=== PATIENT | female | born 1945 | race Two or more races ===

== ENCOUNTER 2022-08-16 15:43 | Inpatient (IN) | payer MEDICARE, BC ==
[~2022-08-16] VITALS: Ht 165.1 cm; Wt 53.5 kg
--- NOTE | 2022-08-16 17:45 | NUR ---
MS HOT DOG VENDER NOTES RECEIVED PATIENT DIRECT ADMIT FROM [facility] VIA LI ENDORSED BY THEA BASSETT. PATIENT IS AWAKE AND A/O X3. ON O2 AT 3LPM VIA NASAL CANNULA TOLERATING WELL. NO SOB NOTED. NOT IN DISTRESS. WITH COMPLAINTS OF PAIN AT THE RIGHT HIP AT THE SCALE OF 5/10. COMFORT MEASURE PROVIDED. WITH SKIN ISSUES AND PHOTOS TAKEN PLACED ON CHART. WITH IV ACCESS AT THE LEFT AC G20 SALINE LOCKED, PATENT AND INTACT. SAFETY MEASURES IN PLACED. CALL LIGHT WITHIN REACH. BED ON LOWEST LOCKED POSITION, SIDE RAILS UP X2. WILL ENDORSE TO NEXT SHIFT FOR JUAN MANUEL.
[2022-08-16] MEDS ORDERED: MAG HYDROX/AL HYDROX/SIMETH 30 ML UDC PO PRN (18:00)
[2022-08-16] MEDS ORDERED: ONDANSETRON HCL/PF 4 MG/2 ML VIAL IVP PRN (18:00)
[2022-08-16] MEDS ORDERED: MAGNESIUM HYDROXIDE 30 ML UDC PO PRN (18:00)
[2022-08-16] MEDS ORDERED: ACETAMINOPHEN 325 MG TABLET PO PRN (18:00)
[2022-08-16] MEDS ORDERED: HYDROCODONE/APAP 10/325MG TABLET PO PRN (18:00)
[2022-08-16 18:10] VITALS: BP 127/83
[2022-08-16 18:39] VITALS: BP 110/68
--- NOTE | 2022-08-16 19:45 | NUR ---
MS RN OPENING NOTE RECEIVED PATIENT IN BED; AWAKE, ALERT AND ORIENTED X 1. ON O2 INHALATION @ 3 LPM VIA NASAL CANNULA; SATURATING @ 97%. BREATHING EVEN AND UNLABORED. NO C/O PAIN OR DISCOMFORT AT THIS TIME. WITH IV ACCESS ON LEFT AC 20g; PATENT AND INTACT INFUSING WITH NS 1L REGULATED @ 90 ML/HR; FLUSHES WELL. SAFETY PRECAUTIONS IMPLEMENTED: HOB ELEVATED, CALL LIGHT AND TABLE WITHIN REACH, SIDE RAILS UP X 3, BED IN LOWEST LOCKED POSITION. WILL CONTINUE PLAN OF CARE.
[2022-08-16 20:00] VITALS: BP_SYST 113; BP_SYST 154; BP_DIAS 54; BP_DIAS 78
[2022-08-16] MEDS: IV NS 0.9% 1,000 ML IV PRN (20:03)
--- NOTE | 2022-08-17 06:50 | NUR ---
MS RN CLOSING NOTE PATIENT IN BED; AWAKE, A/O X 1. STILL ON O2 INHALATION @ 3 LPM VIA NASAL CANNULA; SATURATING @ 96%. BREATHING EQUAL AND NONLABORED. NO C/O PAIN OR DISCOMFORT AT THIS TIME. WITH IV ACCESS ON RIGHT FA 22g; PATENT AND INTACT INFUSING WITH NS 1L REGULATED @ 90 ML/HR; FLUSHES WELL. SAFETY PRECAUTIONS MAINTAINED: CALL LIGHT AND TABLE WITHIN REACH, SIDE RAILS UP X 3, BED IN LOWEST LOCKED POSITION. ENDORSED TO MORNING SHIFT FOR JUAN MANUEL.
[2022-08-17 07:00] VITALS: BP 157/72
[2022-08-17 07:08] LABS: BASOPHILS % (AUTO) 0.5 % (0.0-2.0); EOSINOPHILS % (AUTO) 1.7 % (0.0-6.0); HEMATOCRIT 42 % (33-45); HEMOGLOBIN 13.7 g/dL (11.5-14.8); LYMPHOCYTES # (AUTO) 0.8 K/uL (0.8-4.8); LYMPHOCYTES % (AUTO) 10.1 % (20.0-44.0); MEAN CORPUSCULAR HGB CONC 33 g/dl (31.0-36.0); MEAN CORPUSCULAR VOLUME 92 fL (82-100); MONOCYTES # (AUTO) 0.4 K/uL (0.1-1.30); MONOCYTES % (AUTO) 5.3 % (2.0-12.0); NEUTROPHILS # (AUTO) 6.8 K/uL (1.8-8.9); NEUTROPHILS % (AUTO) 82.4 % (43.0-81.0); PLATELET COUNT (AUTO) 176 K/uL (150-450); RED BLOOD CELL COUNT(AUTO) 4.53 MIL/uL (4.0-5.2); WHITE BLOOD COUNT (AUTO) 8.2 K/uL (4.3-11.0)
[2022-08-17 07:18] LABS: CALCIUM, SERUM 8.3 mg/dL (8.5-10.1); CREATININE 1.1 mg/dL (0.6-1.3); MAGNESIUM 2.2 mg/dL (1.8-2.4); POTASSIUM 3.4 mmol/L (3.5-5.1)
--- NOTE | 2022-08-17 07:30 | NUR ---
MS RN OPENING NOTES RECEIVED PATIENT ON BED AWAKE AND A/O X2-3. ON O2 AT 3LPM VIA NASAL CANNULA TOLERATING WELL. NO SOB NOTED. NOT IN DISTRESS. WITH COMPLAINTS OF PAIN AT THE RIGHT HIP AND RIGHT KNEE AT THE SCALE OF 5/10. COMFORT MEASURES PROVIDED. PATIENT DOESN'T WANT TO TAKE ANY PAIN MEDICATION. WITH IV ACCESS AT THE RIGHT FOREARM G22 WITH IVF NS AT 90ML/HR INFUSING WELL. SAFETY MEASURES IN PLACED. CALL LIGHT WITHIN REACH. BED ON LOWEST LOCKED POSITION, SIDE RAILS UP X2. WILL CONTINUE TO MONITOR.
[2022-08-17] MEDS ORDERED: FAMO20TA8 PO (08:05)
[2022-08-17] MEDS ORDERED: ALBU18HF2 IH (08:05)
[2022-08-17] MEDS ORDERED: LEVO100T9 PO (08:05)
[2022-08-17] MEDS ORDERED: ASPI-1169 PO (08:05)
[2022-08-17] MEDS ORDERED: SIMV-46 PO (08:05)
[2022-08-17] MEDS ORDERED: POLY250017 PO (08:05)
[2022-08-17] MEDS ORDERED: FLUD0.1T PO (08:05)
[2022-08-17] MEDS ORDERED: EZET10TA16 PO (08:05)
[2022-08-17] MEDS ORDERED: FLUT1DIS3 INH (08:05)
[2022-08-17] MEDS ORDERED: TIOT18CA3 INH (08:05)
[2022-08-17] MEDS ORDERED: POTASSIUM CHLORIDE 20 MEQ TAB.PRT.SR PO ONE (09:00)
[2022-08-17] MEDS ORDERED: ALBUTEROL FS 2.5 MG/0.5 ML VIAL.NEB NEB PRN (10:30)
[2022-08-17] MEDS: LEVOTHYROXINE SODIUM 100 MCG TABLET PO SCH (11:37)
[2022-08-17] MEDS: FLUTICASONE/VILANTEROL 1 EACH BLST.W.DEV IH SCH (11:37)
[2022-08-17 16:00] VITALS: BP 162/70
[2022-08-17] MEDS ORDERED: K PHOS NEUTRAL 250 MG TABLET PO ONE (16:00)
[2022-08-17] MEDS: SIMVASTATIN 20 MG TABLET PO SCH (17:39)
[2022-08-17] MEDS: IV NS 0.9% 1,000 ML IV PRN (17:47)
--- NOTE | 2022-08-17 18:37 | NUR ---
MS RN CLOSING NOTES PATIENT ON BED AWAKE AND A/O X2-3. ON O2 AT 2LPM VIA NASAL CANNULA TOLERATING WELL. NO SOB NOTED. NOT IN DISTRESS. WITH COMPLAINTS OF PAIN AT THE RIGHT HIP AND RIGHT KNEE AT THE SCALE OF 5/10. COMFORT MEASURES PROVIDED. PATIENT DOESN'T WANT TO TAKE ANY PAIN MEDICATION. WITH IV ACCESS AT THE RIGHT FOREARM G22 WITH IVF NS AT 90ML/HR INFUSING WELL. DUE MEDS GIVEN. SAFETY MEASURES IN PLACED. CALL LIGHT WITHIN REACH. BED ON LOWEST LOCKED POSITION, SIDE RAILS UP X2. WILL ENDORSE TO NEXT SHIFT FOR JUAN MANUEL.
--- NOTE | 2022-08-17 19:48 | NUR ---
MS RN OPENING NOTE PATIENT AWAKE IN BED, ALERT/ORIENTED X 1-2 WITH CONFUSION. PATIENT STABLE ON 2 L OF O2 VIA NASAL CANNULA, NO S/S OF DISTRESS OR SOB NOTED, BREATHING EVEN AND UNLABORED. IV ACCESS ON RFA #22G INTACT AND INFUSING NS @ 90 ML/HR. PUREWICK IN PLACE AND DRAINING LATA URINE. PATIENT TO BE NPO AT MIDNIGHT FOR RIGHT HIP SURGERY TOMORROW. SAFETY MEASURES IN PLACE: CALL LIGHT WITHIN REACH, SIDE RAILS UP X 3, BED LOCKED IN LOWEST POSITION, HOB ELEVATED, BED ALARM ON. WILL CONTINUE TO MONITOR PATIENT
[2022-08-17 20:00] VITALS: BP 156/69
[2022-08-17] MEDS: IPRATROPIUM NEB FS 0.5 MG/2.5 ML AMPUL.NEB NEB SCH (20:44)
--- NOTE | 2022-08-17 20:50 | NUR ---
MS RN NOTE PATIENT C/O 7/10 RIGHT HIP PAIN. NORCO 10-325 MG GIVEN ORDERED. WILL CONTINUE TO MONITOR PATIENT
[2022-08-18] VITALS (8 sets, daily range): BP systolic 104–155; BP diastolic 57–77
[2022-08-18] MEDS: IPRATROPIUM NEB FS 0.5 MG/2.5 ML AMPUL.NEB NEB SCH ×4 (00:48→20:25)
--- NOTE | 2022-08-18 04:54 | NUR ---
MS RN NOTE PATIENT C/O OF 8/10 RIGHT HIP PAIN. PATIENT ONLY HAS ORDER FOR NORCO, HOWEVER PATIENT IS NOW NPO FOR SURGERY THIS AM. CONTACTED NON FOOD RECEIVING CLERK MD JOSIANE JUDD WITH ORDER FOR PRN MORPHINE 1 MG IV Q6H. ORDER VERIFIED AND CARRIED OUT
[2022-08-18] MEDS: MORPHINE SULFATE INJ 2 MG/ML DISP.SYRIN IV PRN ×2 (05:00→17:54)
[2022-08-18] MEDS: IV NS 0.9% 1,000 ML IV PRN (05:00)
[2022-08-18 05:45] LABS: BASOPHILS % (AUTO) 0.4 % (0.0-2.0); EOSINOPHILS % (AUTO) 2.2 % (0.0-6.0); HEMATOCRIT 36 % (33-45); HEMOGLOBIN 11.9 g/dL (11.5-14.8); LYMPHOCYTES # (AUTO) 0.8 K/uL (0.8-4.8); LYMPHOCYTES % (AUTO) 12.8 % (20.0-44.0); MEAN CORPUSCULAR HGB CONC 33 g/dl (31.0-36.0); MEAN CORPUSCULAR VOLUME 92 fL (82-100); MONOCYTES # (AUTO) 0.5 K/uL (0.1-1.30); MONOCYTES % (AUTO) 7.2 % (2.0-12.0); NEUTROPHILS # (AUTO) 4.9 K/uL (1.8-8.9); NEUTROPHILS % (AUTO) 77.4 % (43.0-81.0); PLATELET COUNT (AUTO) 132 K/uL (150-450); RED BLOOD CELL COUNT(AUTO) 3.91 MIL/uL (4.0-5.2); WHITE BLOOD COUNT (AUTO) 6.3 K/uL (4.3-11.0)
[2022-08-18 06:00] LABS: CALCIUM, SERUM 7.7 mg/dL (8.5-10.1); CREATININE 0.9 mg/dL (0.6-1.3); PHOSPHORUS 2.6 mg/dL (2.5-4.9); POTASSIUM 3.3 mmol/L (3.5-5.1)
[2022-08-18] MEDS ORDERED: POLYMYXIN B SULFATE 500,000 UNITS ONE (06:14)
[2022-08-18] MEDS ORDERED: BUPIVACAINE 0.25% 75 MG/30 ML VIAL ONE (06:15)
--- NOTE | 2022-08-18 06:22 | NUR ---
MS RN CLOSING NOTE PATIENT SLEEPING IN BED, EASILY AWAKENED, PT ALERT/ORIENTED X 1-2 WITH PERIODS OF CONFUSION. PATIENT STABLE ON 2 L OF O2 VIA NASAL CANNULA, NO S/S OF DISTRESS OR SOB NOTED, BREATHING EVEN AND UNLABORED. IV ACCESS ON RFA #22G INTACT AND INFUSING NS @ 90 ML/HR. NO SIGNIFICANT CHANGES THIS SHIFT, MEDICATIONS GIVEN ORDERED, PT NEEDS MET THROUGHOUT SHIFT, PATIENT SLEPT WELL THROUGH THE NIGHT, PAIN CONTROL PROVIDED. PUREWICK IN PLACE AND DRAINING LATA URINE. SAFETY MEASURES IN PLACE: CALL LIGHT WITHIN REACH, SIDE RAILS UP X 3, BED LOCKED IN LOWEST POSITION, HOB ELEVATED, BED ALARM ON. WILL ENDORSE TO DAYSHIFT RN FOR CONTINUITY OF CARE
--- NOTE | 2022-08-18 06:48 | NUR ---
MS RN NOTE PATIENT TAKEN DOWN TO OR BY OR NURSE, PT IN STABLE CONDITION. WILL ENDORSE TO DAYSHIFT RN
[2022-08-18] MEDS ORDERED: FENTANYL PF 100MCG/2ML AMPUL ONE (06:52)
[2022-08-18] MEDS ORDERED: HYDROMORPHONE INJ 2 MG/ML DISP.SYRIN ONE (06:52)
[2022-08-18] MEDS ORDERED: MIDAZOLAM HCL 2 MG/2ML VIAL ONE (06:53)
[2022-08-18] MEDS ORDERED: TRANEXAMIC ACID 1,000 MG in IV NS 0.9% 100 ML IV ONE (07:00)
[2022-08-18] MEDS: LEVOTHYROXINE SODIUM 100 MCG TABLET PO SCH (07:30)
--- NOTE | 2022-08-18 07:56 | NUR ---
RN OPENING NOTE RECEIVED PATIENT IN BED AO X 1-2 CONFUSED, ABLE TO RESPONDS PHYSICAL STIMULI. RESPIRATORY EVEN AND UNLABORED IN OXYGEN AT 2 Ls VIA NC. PATIENT LEFT PROCEDURE FOR RIGHT ORTHOPLASTY AT 0640 REPORTED BY ASSOCIATE STORE DIRECTOR.
[2022-08-18] MEDS: FAMOTIDINE (20 MG) 20 MG TABLET PO SCH (09:00)
[2022-08-18] MEDS: EZETIMIBE 10 MG TABLET PO SCH (09:00)
[2022-08-18] MEDS: FLUDROCORTISONE 0.1 MG TABLET PO SCH (09:00)
[2022-08-18] MEDS: POLYETHYLENE GLYCOL 3350 17 GM POWD.PACK PO SCH (09:00)
[2022-08-18] MEDS: FLUTICASONE/VILANTEROL 1 EACH BLST.W.DEV IH SCH (09:00)
[2022-08-18] MEDS ORDERED: ANESTHESIA TRAY IN PYXIS 1 EA TRAY MC ONE (11:04)
[2022-08-18] MEDS ORDERED: SENNOSIDES 8.6 MG TABLET PO PRN (11:30)
[2022-08-18] MEDS ORDERED: DOCUSATE SODIUM 250 MG CAPSULE PO PRN (11:30)
[2022-08-18] MEDS ORDERED: BISACODYL SUPP (10 MG) 10 MG/SUPP.RECT SUPP.RECT RC PRN (11:30)
[2022-08-18] MEDS ORDERED: ACETAMINOPHEN 325 MG TABLET PO PRN (11:30)
[2022-08-18] MEDS ORDERED: HYDROCODONE/APAP 5/325MG TABLET PO PRN (11:30)
--- NOTE | 2022-08-18 11:30 | NUR ---
THE PATIENT BACK FROM OR (ORIF/RIGHT HIP) RECEIVED REPORT BY PAT/RN. ALL VITAL SIGNS ARE STABLE DOCUMENTED IN THE INTERVENTION. WILL CONTINUE TO MONITOR.
[2022-08-18] MEDS: POTASSIUM CL. PREMIX PERIPHER. 50 ML IV SCH ×2 (12:37→13:22)
[2022-08-18] MEDS: ANCEF 1 GM/50 ML D5W IV SCH ×4 (14:54→23:08)
[2022-08-18] MEDS: SIMVASTATIN 20 MG TABLET PO SCH (17:54)
--- NOTE | 2022-08-18 18:54 | NUR ---
RN CLOSING NOTE PATIENT RESTING IN BED. S/P ORIF ON RIGHT HIP AND IN NO ACUTE DISTRESS OBSERVED. RESPIRATORY EVEN AND UNLABORED IN OXYGEN 1 L, NO SOB OR DESATURATION NOTED. SKIN IS WARM TO TOUCH KEEP CLEAN/DRY. GIVEN MORPHINE 1 MG PRN. ALL VITAL SIGNS ARE STABLE. ENCOURAGED PATIENT TO ORAL FLUID INTAKE TOLERATED. KEPT ELEVATED HOB FOR ENSURE AIRWAY/ASPIRATION PRECAUTION, AND LOWEST BED POSITION. BED ALARM IS ON AT ALL THE TIME FOR SAFETY. CALL LIGHT WITHIN REACH, WILL ENDORSE LEADERSHIP PROGRAM ASSOCIATE.
--- NOTE | 2022-08-18 19:40 | NUR ---
RN OPENING NOTES; RECEIVED PT IN BED SLEEPING COMFORTABLE,BUT EASY TO AROUSED,AOX1 WITH CONFUSION,ON 2L O2 VIA NC DAVID WELL SATTING 97.2%,NO SOB/DISTRESS NOTED,IV SITE ON RFA 22G WITH NS 90ML/HR INFUSING WELL,NO INFILTRATION,REDNESS NOTED,SAFETY MEASURE IN PLACE,CALL LIGHT WITHIN REACH,WILL CONTINUE TO MONITOR .
[2022-08-19] MEDS: IPRATROPIUM NEB FS 0.5 MG/2.5 ML AMPUL.NEB NEB SCH ×4 (01:30→20:13)
[2022-08-19 06:18] LABS: BASOPHILS % (AUTO) 0.2 % (0.0-2.0); EOSINOPHILS % (AUTO) 0.6 % (0.0-6.0); HEMATOCRIT 31 % (33-45); HEMOGLOBIN 10.4 g/dL (11.5-14.8); LYMPHOCYTES # (AUTO) 0.9 K/uL (0.8-4.8); LYMPHOCYTES % (AUTO) 14.4 % (20.0-44.0); MEAN CORPUSCULAR HGB CONC 34 g/dl (31.0-36.0); MEAN CORPUSCULAR VOLUME 91 fL (82-100); MONOCYTES # (AUTO) 0.7 K/uL (0.1-1.30); MONOCYTES % (AUTO) 10.6 % (2.0-12.0); NEUTROPHILS # (AUTO) 4.6 K/uL (1.8-8.9); NEUTROPHILS % (AUTO) 74.2 % (43.0-81.0); PLATELET COUNT (AUTO) 142 K/uL (150-450); WHITE BLOOD COUNT (AUTO) 6.2 K/uL (4.3-11.0)
--- NOTE | 2022-08-19 06:25 | NUR ---
RN OPENING NOTES; PT IN BED SLEEPING COMFORTABLE,BUT EASY TO AROUSED,AOX1 WITH CONFUSION,ON 2L O2 VIA NC DAVID WELL SATING 98%,NO SOB/DISTRESS NOTED,NO SIGN OF PAIN/DISCOMFORT DURING SHIFT,DUE MEDS GIVEN ORDER,ALL NEEDS ATTENDED,IV SITE ON RFA 22G WITH NS 90ML/HR INFUSING WELL,NO INFILTRATION,REDNESS NOTED,KEPT CLEANED AND DRY AT ALL TIME,SAFETY MEASURE IN PLACE,CALL LIGHT WITHIN REACH,WILL ENDORSED TO NEXT SHIFT.
[2022-08-19 07:00] VITALS: BP 165/80
[2022-08-19 07:07] LABS: CREATININE 1.1 mg/dL (0.6-1.3); POTASSIUM 3.7 mmol/L (3.5-5.1)
--- NOTE | 2022-08-19 07:58 | NUR ---
RN OPENING NOTE RECEIVED PATIENT IN BED AO x 1-2 CONFUSED, S/P RIGHT HIP ORIF. ABLE TO RESPONDS PHYSICAL STIMULI. RESPIRATORY EVEN AND UNLABORED IN OXYGEN AT 1 L VIA NC. IN NO ACUTE DISTRESS OBSERVED. SKIN IS WARM TO TOUCH, KEEP CLEAN/DRY. KEPT ELEVATED HOB FOR ASPIRATION PRECAUTION/ENSURE AIRWAY, ALSO LOWEST BED POSITIONED. BED ALARM IS ON AT ALL THE TIME FOR SAFETY. CALL LIGHT WITHIN REACH, WILL CONTINUE TO MONITOR.
[2022-08-19] MEDS: POLYETHYLENE GLYCOL 3350 17 GM POWD.PACK PO SCH (08:48)
[2022-08-19] MEDS: EZETIMIBE 10 MG TABLET PO SCH (08:48)
[2022-08-19] MEDS: LEVOTHYROXINE SODIUM 100 MCG TABLET PO SCH (08:48)
[2022-08-19] MEDS: FLUDROCORTISONE 0.1 MG TABLET PO SCH (08:48)
[2022-08-19] MEDS: FAMOTIDINE (20 MG) 20 MG TABLET PO SCH (08:48)
[2022-08-19] MEDS: FLUTICASONE/VILANTEROL 1 EACH BLST.W.DEV IH SCH (08:56)
[2022-08-19] MEDS: MORPHINE SULFATE INJ 2 MG/ML DISP.SYRIN IV PRN (10:05)
[2022-08-19] MEDS: IV NS 0.9% 1,000 ML IV PRN ×2 (12:13→23:43)
--- NOTE | 2022-08-19 13:44 | NUR ---
PATIENT GOING REVISION OF RIGHT TOTAL HIP ARTHROPLASTY TOMORROW IN AM, /ANTHONY TALBOT LEFT MESSAGE X 2 TO OBTAIN CONSENT. AWAITING RESPONSE.
--- NOTE | 2022-08-19 15:29 | NUR ---
OBTAINED SIGN OF CONSENT (WITH 2 RNs) BY /ANTHONY TALBOT OVER THE PHONE FOR TOMORROW PROCEDURE IN AM.
[2022-08-19 16:00] VITALS: BP 157/74
[2022-08-19] MEDS: SIMVASTATIN 20 MG TABLET PO SCH (17:16)
--- NOTE | 2022-08-19 18:06 | NUR ---
RN CLOSING NOTE PATIENT RESTING IN BED, AND IN NO ACUTE DISTRESS OBSERVED. RESPIRATORY EVEN AND UNLABORED IN OXYGEN 1 L, NO SOB OR DESATURATION NOTED. SKIN IS WARM TO TOUCH KEEP CLEAN/DRY. THE PATIENT IS SCHEDULED FOR REVISION RIGHT HIP ARTHROPLASTY TOMORROW IN AM. ALL VITAL SIGNS ARE STABLE. ENCOURAGED PATIENT TO NOT REMOVE OXYGEN. KEPT ELEVATED HOB FOR ENSURE AIRWAY/ASPIRATION PRECAUTION, AND LOWEST BED POSITION. BED ALARM IS ON AT ALL THE TIME FOR SAFETY. CALL LIGHT WITHIN REACH, WILL ENDORSE SOCIAL SCIENCE TEACHER.
--- NOTE | 2022-08-19 19:44 | NUR ---
RN OPENING NOTES; RECEIVED PT IN BED SLEEPING COMFORTABLE,BUT EASY TO AROUSED,AOX1 WITH CONFUSION,ON 2L O2 VIA NC DAVID WELL,NO SOB/DISTRESS NOTED,IV SITE ON RFA 22G WITH NS 90ML/HR INFUSING WELL,NO INFILTRATION,REDNESS NOTED,SAFETY MEASURE IN PLACE,CALL LIGHT WITHIN REACH,WILL CONTINUE TO MONITOR .
[2022-08-19 21:26] VITALS: BP 186/93
[2022-08-20] MEDS: IPRATROPIUM NEB FS 0.5 MG/2.5 ML AMPUL.NEB NEB SCH ×4 (01:10→21:51)
--- NOTE | 2022-08-20 06:42 | NUR ---
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
[2022-08-20] MEDS ORDERED: POLYMYXIN B SULFATE 500,000 UNITS ONE (06:47)
[2022-08-20] MEDS ORDERED: BUPIVACAINE 0.5 % PF 150 MG/30 ML VIAL ONE (06:47)
[2022-08-20] MEDS ORDERED: TRANEXAMIC ACID 1,000 MG/10 ML VIAL ONE (06:59)
[2022-08-20] MEDS ORDERED: LIDOCAINE HCL/MPF 1% 30 ML VIAL IJ ONE (06:59)
[2022-08-20] MEDS ORDERED: ROCURONIUM BROMIDE 50 MG/5 ML ONE ×2 (06:59)
[2022-08-20 07:12] LABS: CREATININE 0.9 mg/dL (0.6-1.3); POTASSIUM 3.1 mmol/L (3.5-5.1)
[2022-08-20] MEDS ORDERED: FENTANYL PF 100MCG/2ML AMPUL ONE (07:24)
[2022-08-20 07:28] LABS: BASOPHILS % (AUTO) 0.3 % (0.0-2.0); HEMATOCRIT 32 % (33-45); HEMOGLOBIN 10.6 g/dL (11.5-14.8); LYMPHOCYTES # (AUTO) 0.9 K/uL (0.8-4.8); LYMPHOCYTES % (AUTO) 12.3 % (20.0-44.0); MEAN CORPUSCULAR HGB CONC 33 g/dl (31.0-36.0); MEAN CORPUSCULAR VOLUME 91 fL (82-100); MONOCYTES # (AUTO) 0.6 K/uL (0.1-1.30); MONOCYTES % (AUTO) 8.3 % (2.0-12.0); NEUTROPHILS # (AUTO) 5.8 K/uL (1.8-8.9); NEUTROPHILS % (AUTO) 78.1 % (43.0-81.0); PLATELET COUNT (AUTO) 143 K/uL (150-450); RED BLOOD CELL COUNT(AUTO) 3.56 MIL/uL (4.0-5.2); WHITE BLOOD COUNT (AUTO) 7.4 K/uL (4.3-11.0)
[2022-08-20] MEDS: LEVOTHYROXINE SODIUM 100 MCG TABLET PO SCH (07:30)
--- NOTE | 2022-08-20 07:35 | NUR ---
RN NOTE RECEIVED REPORT FROM ROTARY DRIER FEEDER NURSE, PT IN OR. WILL CONTINUE TO MONITOR WHEN PT COME BACK.
[2022-08-20 08:00] VITALS: BP 135/66
[2022-08-20] MEDS: FLUTICASONE/VILANTEROL 1 EACH BLST.W.DEV IH SCH (09:00)
[2022-08-20] MEDS: FAMOTIDINE (20 MG) 20 MG TABLET PO SCH (09:00)
[2022-08-20] MEDS: POLYETHYLENE GLYCOL 3350 17 GM POWD.PACK PO SCH (09:00)
[2022-08-20] MEDS: FLUDROCORTISONE 0.1 MG TABLET PO SCH (09:00)
[2022-08-20] MEDS: EZETIMIBE 10 MG TABLET PO SCH (09:00)
--- NOTE | 2022-08-20 10:20 | NUR ---
RN NOTE THE PATIENT BACK FROM OR (ORIF/RIGHT HIP) RECEIVED REPORT FROM SARAH BETH/RN. VS STABLE. WILL CONTINUE TO MONITOR.
[2022-08-20 10:28] VITALS: BP 158/76
[2022-08-20] MEDS: POTASSIUM CHLORIDE 20 MEQ TAB.PRT.SR PO SCH ×2 (11:42→12:47)
[2022-08-20 12:00] VITALS: BP 135/66
[2022-08-20] MEDS: IV NS 0.9% 1,000 ML IV PRN (13:30)
[2022-08-20] MEDS: ANCEF 1 GM/50 ML D5W IV SCH ×4 (16:27→23:40)
[2022-08-20 16:47] VITALS: BP 173/78
[2022-08-20] MEDS: SIMVASTATIN 20 MG TABLET PO SCH (17:11)
[2022-08-20] MEDS: CLONIDINE HCL 0.1 MG TABLET PO PRN (18:00)
--- NOTE | 2022-08-20 18:55 | NUR ---
RN CLOSING NOTE PATIENT RESTING IN BED, AND IN NO ACUTE DISTRESS OBSERVED. RESPIRATORY EVEN AND NONLABORED IN OXYGEN 3LPM, NO SOB NOTED. SKIN IS WARM TO TOUCH KEPT PT CLEAN/DRY. KEPT ELEVATED HOB FOR ENSURE AIRWAY/ASPIRATION PRECAUTION. FALL AND SAFETY MEASURES IN PLACE, BED ALARM ON, BED IN LOW AND LOCK POSITION, CALL LIGHT AND TABLE WITHIN EASY REACH, SIDE RAILS UP X3. ALL NEEDS ATTENDED AND ANTICIPATED. WILL ENDORSE TO STORE FACILITY TECHNICIAN FOR JUAN MANUEL.
--- NOTE | 2022-08-20 19:31 | NUR ---
RN OPENING NOTES; RECEIVED PT IN BED SLEEPING COMFORTABLE,BUT EASY TO AROUSED,AOX1 WITH CONFUSION,ON 2L O2 VIA NC DAVID WELL,NO SOB/DISTRESS NOTED,BREATHING EVEN AND UNLABORED,IV SITE ON RFA 22G WITH NS 90ML/HR INFUSING WELL,NO INFILTRATION,REDNESS NOTED,SP RIGHT TOTAL HIP ARTHROPLASTY,NO BLEEDING OR UNUSUAL DISCHARGE NOTED,DRESSING INTACT,SAFETY MEASURE IN PLACE,CALL LIGHT WITHIN REACH,WILL CONTINUE TO MONITOR .
[2022-08-20 20:00] VITALS: BP 145/65
[2022-08-20 20:37] LABS: HEMOGLOBIN 8.4 g/dL (11.5-14.8)
[2022-08-20] MEDS: ENOXAPARIN SODIUM 40 MG/0.4 ML DISP.SYRIN SQ SCH (21:17)
[2022-08-21] MEDS: IPRATROPIUM NEB FS 0.5 MG/2.5 ML AMPUL.NEB NEB SCH ×4 (01:30→21:03)
[2022-08-21] MEDS: IV NS 0.9% 1,000 ML IV PRN ×2 (01:59→15:18)
--- NOTE | 2022-08-21 06:20 | NUR ---
RN CLOSING NOTES; PATIENT IN BED SLEEPING COMFORTABLE,BUT EASY TO AROUSED,AOX1 WITH CONFUSION,ON 2L O2 VIA NC DAVID WELL,NO SOB/DISTRESS NOTED,BREATHING EVEN AND UNLABORED,NO FACIAL GRIMACE FOR PAIN/DISCOMFORT,PT SLEPT COMFORTABLE THRU THE NIGHT,IV SITE ON RFA 22G WITH NS 90ML/HR INFUSING WELL,NO INFILTRATION,REDNESS NOTED,SP RIGHT TOTAL HIP ARTHROPLASTY,NO BLEEDING OR UNUSUAL DISCHARGE NOTED,DRESSING INTACT,SAFETY MEASURE IN PLACE,CALL LIGHT WITHIN REACH,WILL ENDORSED TO NEXT SHIFT.
[2022-08-21 06:54] LABS: BASOPHILS % (AUTO) 0.2 % (0.0-2.0); EOSINOPHILS % (AUTO) 1.1 % (0.0-6.0); HEMATOCRIT 25 % (33-45); HEMOGLOBIN 8.2 g/dL (11.5-14.8); LYMPHOCYTES # (AUTO) 0.8 K/uL (0.8-4.8); MEAN CORPUSCULAR HGB CONC 33 g/dl (31.0-36.0); MEAN CORPUSCULAR VOLUME 91 fL (82-100); MONOCYTES # (AUTO) 0.5 K/uL (0.1-1.30); MONOCYTES % (AUTO) 7.5 % (2.0-12.0); NEUTROPHILS # (AUTO) 5.2 K/uL (1.8-8.9); NEUTROPHILS % (AUTO) 79.2 % (43.0-81.0); PLATELET COUNT (AUTO) 137 K/uL (150-450); RED BLOOD CELL COUNT(AUTO) 2.74 MIL/uL (4.0-5.2); WHITE BLOOD COUNT (AUTO) 6.5 K/uL (4.3-11.0)
[2022-08-21 07:08] LABS: CALCIUM, SERUM 7.4 mg/dL (8.5-10.1); CREATININE 0.9 mg/dL (0.6-1.3); POTASSIUM 3.6 mmol/L (3.5-5.1)
--- NOTE | 2022-08-21 07:50 | NUR ---
RN OPENING NOTE RECEIVED PT IN BED SLEEPING COMFORTABLE,BUT EASY TO AROUSED,AOX1 WITH CONFUSION,ON 2L O2 VIA NC DAVID WELL,NO SOB/DISTRESS NOTED, BREATHING EVEN AND NONLABORED,IV SITE ON RFA 22G WITH NS 90ML/HR INFUSING WELL,NO INFILTRATION,REDNESS NOTED,SP RIGHT TOTAL HIP ARTHROPLASTY,NO BLEEDING OR UNUSUAL DISCHARGE NOTED,DRESSING INTACT,SAFETY MEASURE IN PLACE,CALL LIGHT WITHIN REACH,WILL CONTINUE TO MONITOR.
[2022-08-21] MEDS: FAMOTIDINE (20 MG) 20 MG TABLET PO SCH (09:16)
[2022-08-21] MEDS: LEVOTHYROXINE SODIUM 100 MCG TABLET PO SCH (09:16)
[2022-08-21] MEDS: FLUDROCORTISONE 0.1 MG TABLET PO SCH (09:16)
[2022-08-21] MEDS: POLYETHYLENE GLYCOL 3350 17 GM POWD.PACK PO SCH (09:17)
[2022-08-21] MEDS: EZETIMIBE 10 MG TABLET PO SCH (09:17)
[2022-08-21] MEDS: FLUTICASONE/VILANTEROL 1 EACH BLST.W.DEV IH SCH (09:19)
[2022-08-21] MEDS: ENSURE ENLIVE 237 ML LIQUID (VANILLA) PO SCH ×2 (12:25→16:23)
[2022-08-21] MEDS: SIMVASTATIN 20 MG TABLET PO SCH (17:09)
[2022-08-21] MEDS: AMLODIPINE BESYLATE 2.5 MG TABLET PO SCH (17:09)
--- NOTE | 2022-08-21 18:35 | NUR ---
RN CLOSING NOTE PATIENT RESTING IN BED, AND IN NO ACUTE DISTRESS OBSERVED. RESPIRATORY EVEN AND NONLABORED IN OXYGEN 3LPM, NO SOB NOTED. SKIN IS WARM TO TOUCH KEPT PT CLEAN/DRY. KEPT ELEVATED HOB FOR ENSURE AIRWAY/ASPIRATION PRECAUTION. IV SITE ON RFA 22G WITH NS 90ML/HR INFUSING. NO BLEEDING OR UNUSUAL DISCHARGE NOTED DRESSING INTACT.FALL AND SAFETY MEASURES IN PLACE, BED ALARM ON, BED IN LOW AND LOCK POSITION, CALL LIGHT AND TABLE WITHIN EASY REACH, SIDE RAILS UP X3. ALL NEEDS ATTENDED AND ANTICIPATED. WILL ENDORSE TO HEEL FINISHER FOR JUAN MANUEL.
--- NOTE | 2022-08-21 19:43 | NUR ---
RN OPENING NOTE PATIENT RESTING IN BED, A/O X1-2 IN NO ACUTE DISTRESS OBSERVED. RESPIRATORY EVEN AND NONLABORED IN OXYGEN 3LPM, NO SOB NOTED.KEPT ELEVATED HOB FOR ASPIRATION PRECAUTION. IV SITE ON RFA 22G WITH NS 90ML/HR RUNNING. NOTED DRESSING INTACT.FALL AND SAFETY MEASURES IN PLACE, BED ALARM ON, BED IN LOW AND LOCK POSITION, CALL LIGHT AND TABLE WITHIN EASY REACH, SIDE RAILS UP X3. ALL NEEDS ATTENDED AND ANTICIPATED.
[2022-08-21 20:00] VITALS: BP 172/70
[2022-08-21] MEDS: ENOXAPARIN SODIUM 40 MG/0.4 ML DISP.SYRIN SQ SCH (20:57)
[2022-08-21] MEDS: CLONIDINE HCL 0.1 MG TABLET PO PRN (21:20)
[2022-08-22 00:23] VITALS: BP 147/70
[2022-08-22] MEDS: IPRATROPIUM NEB FS 0.5 MG/2.5 ML AMPUL.NEB NEB SCH ×3 (00:49→13:49)
[2022-08-22 01:04] VITALS: BP 98/54
--- NOTE | 2022-08-22 06:31 | NUR ---
RN CLOSING NOTE PATIENT RESTING IN BED, A/O X1-2 IN NO ACUTE DISTRESS OBSERVED. RESPIRATORY EVEN AND NONLABORED IN OXYGEN 3LPM, NO SOB NOTED.KEPT ELEVATED HOB FOR ASPIRATION PRECAUTION. IV SITE ON RFA 22G WITH NS 90ML/HR RUNNING. NOTED DRESSING INTACT.FALL AND SAFETY MEASURES IN PLACE, BED ALARM ON, BED IN LOW AND LOCK POSITION, CALL LIGHT AND TABLE WITHIN EASY REACH, SIDE RAILS UP X3. ALL NEEDS ATTENDED AND ANTICIPATED. WILL ENDORSE CARE TO DAY SHIFT NURSE.
--- NOTE | 2022-08-22 07:30 | NUR ---
MS RN OPENING NOTE RECEIVED PATIENT AWAKE IN BED. A/O X 1-2, ABLE TO RESPOND BUT CONFUSED. NO PAIN/DISCOMFORT NOTED AT THIS TIME. ON O2 VIA NC AT 2LPM, NO SIGN OF ACUTE RESPIRATORY DISTRESS NOTED. WITH IV ACCESS ON RAC #22G WITH ONGOING IVF OF NS AT 90ML/HR, INFUSING WELL. SAFETY MEASURES IN PLACE: BED IN LOWEST AND LOCKED POSITION, SIDE RAILS UP X2, TRAY TABLE AND CALL LIGHT WITHIN EASY REACH. WILL CONTINUE TO MONITOR.
[2022-08-22] MEDS: LEVOTHYROXINE SODIUM 100 MCG TABLET PO SCH (07:42)
[2022-08-22] MEDS ORDERED: CALCIUM CARB 600MG /VIT D 1 EACH TABLET PO SCH (09:00)
[2022-08-22] MEDS: FAMOTIDINE (20 MG) 20 MG TABLET PO SCH (09:27)
[2022-08-22] MEDS: EZETIMIBE 10 MG TABLET PO SCH (09:27)
[2022-08-22] MEDS: FLUDROCORTISONE 0.1 MG TABLET PO SCH (09:27)
[2022-08-22 09:28] VITALS: BP 177/77
[2022-08-22] MEDS: POLYETHYLENE GLYCOL 3350 17 GM POWD.PACK PO SCH (09:28)
[2022-08-22] MEDS: ENSURE ENLIVE 237 ML LIQUID (VANILLA) PO SCH ×2 (09:28→13:02)
[2022-08-22] MEDS: AMLODIPINE BESYLATE 2.5 MG TABLET PO SCH (09:28)
[2022-08-22] MEDS ORDERED: AMLO2.5T4 PO (10:01)
[2022-08-22] MEDS ORDERED: ENOX40DI SQ (10:01)
[2022-08-22] MEDS ORDERED: ACET325T53 PO ×2 (10:01)
[2022-08-22] MEDS ORDERED: Calcium Carb 600MG /Vit D PO (10:01)
[2022-08-22] MEDS ORDERED: SENN-175 PO (10:01)
[2022-08-22] MEDS ORDERED: HYDR-3980 PO (10:01)
[2022-08-22] MEDS ORDERED: DOCU250C14 PO (10:01)
[2022-08-22 10:35] LABS: BASOPHILS % (AUTO) 0.4 % (0.0-2.0); EOSINOPHILS % (AUTO) 1.2 % (0.0-6.0); HEMATOCRIT 27 % (33-45); HEMOGLOBIN 9.1 g/dL (11.5-14.8); LYMPHOCYTES # (AUTO) 0.8 K/uL (0.8-4.8); LYMPHOCYTES % (AUTO) 12.7 % (20.0-44.0); MEAN CORPUSCULAR HGB CONC 34 g/dl (31.0-36.0); MEAN CORPUSCULAR VOLUME 90 fL (82-100); MONOCYTES # (AUTO) 0.4 K/uL (0.1-1.30); NEUTROPHILS # (AUTO) 4.8 K/uL (1.8-8.9); NEUTROPHILS % (AUTO) 78.7 % (43.0-81.0); PLATELET COUNT (AUTO) 193 K/uL (150-450); RED BLOOD CELL COUNT(AUTO) 2.97 MIL/uL (4.0-5.2); WHITE BLOOD COUNT (AUTO) 6.1 K/uL (4.3-11.0)
[2022-08-22] MEDS: MORPHINE SULFATE INJ 2 MG/ML DISP.SYRIN IV PRN (11:23)
[2022-08-22] MEDS: FLUTICASONE/VILANTEROL 1 EACH BLST.W.DEV IH SCH (11:32)
--- NOTE | 2022-08-22 14:30 | NUR ---
MS TALENT SCOUT NOTES PATIENT DISCHARGED TO [facility], IN STABLE CONDITION. A/O X 1-2, ABLE TO RESPOND BUT CONFUSED WITH TIMES OF FORGETFULNESS. NO PAIN/DISCOMFORT NOTED AT THIS TIME. V/S TAKEN AND RECORDED. ON O2 VIA NC AT 2LPM, NO SIGN OF ACUTE RESPIRATORY DISTRESS NOTED. WITH IV ACCESS ON RAC #22G REMOVED, DRY DRESSING APPLIED ON SITE. BELONGINGS HANDED TO EMT. REPORT GIVEN TO [facility]. DISCHARGED INSTRUCTIONS AND OTHER DOCUMENTS HANDED TO EMT. MD AND CHARGE NURSE AWARE OF DISCHARGE. PT LEFT THE UNIT AT 1428 VIA STRETCHER ACCOMPANIED BY 2 EMT.
== END 2022-08-22 14:59 | DRG 466 ==
LOC: MED 17:21
PROVIDERS: ADMIT Nurse Practitioner Acute Care; ATTEND Nurse Practitioner Acute Care
PROC: 0QU607Z Supplement Right Upper Femur with Autologous Tissue Substitute, Open Approach (ICD-10-PCS; 2022-08-18)
PROC: 0SR90JZ Replacement of Right Hip Joint with Synthetic Substitute, Open Approach (ICD-10-PCS; 2022-08-18)
PROC: 0SP90JZ Removal of Synthetic Substitute from Right Hip Joint, Open Approach (ICD-10-PCS; principal; 2022-08-20)
PROC: 0SR90JZ Replacement of Right Hip Joint with Synthetic Substitute, Open Approach (ICD-10-PCS; 2022-08-20)
DX: M80.851A Other osteoporosis with current pathological fracture, right femur, initial encounter for fracture (principal); N17.0 Acute kidney failure with tubular necrosis; Z96.642 Presence of left artificial hip joint; Y93.K9 Activity, other involving animal care; Y92.009 Unspecified place in unspecified non-institutional (private) residence as the place of occurrence of the external cause; W01.198A Fall on same level from slipping, tripping and stumbling with subsequent striking against other object, initial encounter; I10 Essential (primary) hypertension; E78.5 Hyperlipidemia, unspecified; J44.9 Chronic obstructive pulmonary disease, unspecified; S09.90XA Unspecified injury of head, initial encounter; R26.9 Unspecified abnormalities of gait and mobility; M16.11 Unilateral primary osteoarthritis, right hip; M21.851 Other specified acquired deformities of right thigh; M84.48XA Pathological fracture, other site, initial encounter for fracture
CPT/HCPCS: 36415; 71045-TC; 72170-TC; 73501; 73502; 73564-TC; 73700-TC; 80048-TC; 83735-TC; 84100-TC; 85025-TC; 85027-TC; 85610-TC; 85730-TC; 86850-TC; 87081-TC; 88305-TC; 88311-TC; 92526; 92611-TC; 93307-TC; 94799-TC; 97110-TC; 97112-TC; 97530-TC; A4217; A4223; A6209; C1713; C1776; G0378; J0690; J1100; J1170; J1650; J1885; J2250; J2270; J2310; J2405; J2704; J2765; J3010; J3480; J3490; J7030; J7050; J7060